=== PATIENT | male | born 1995 | race Caucasian/White ===

== ENCOUNTER 2021-06-10 23:11 | Emergency (ER) | payer OTHER ==
[2021-06-10 23:26] VITALS: TEMP 98.1; BMI 26.6
[2021-06-11] MEDS ORDERED: DIPHTH,PERTUSS(ACELL),TET 0.5 ML DISP.SYRIN IM ONE ×2 (01:04→01:20)
[2021-06-11] MEDS ORDERED: CEPHALEXIN MONOHYDRATE 500 MG CAPSULE (UD) PO ONE (01:39)
[2021-06-11] MEDS ORDERED: CEPHALEXIN MONOHYDRATE 500 MG CAPSULE (UD) ONE (01:50)
[2021-06-11 02:00] VITALS: BP 130/76; PULSE 99
== END 2021-06-11 03:13 | disposition home or self-care (01) ==
LOC: JER 23:11
PROC: 0HQFXZZ Repair Right Hand Skin, External Approach (ICD-10-PCS; principal; 2021-06-10)
PROC: 3E0234Z Introduction of Serum, Toxoid and Vaccine into Muscle, Percutaneous Approach (ICD-10-PCS; 2021-06-10)
DX: S61.210A Laceration without foreign body of right index finger without damage to nail, initial encounter (principal); W26.8XXA Contact with other sharp object(s), not elsewhere classified, initial encounter
CPT/HCPCS: 90715; 99283-25

== ENCOUNTER 2021-06-13 11:18 | Emergency (ER) | payer OTHER ==
[2021-06-13 11:26] VITALS: BP 153/86; PULSE 83; TEMP 97.8; BMI 24.7
== END 2021-06-13 11:48 | disposition home or self-care (01) ==
LOC: JERFT 11:18
DX: Z48.00 Encounter for change or removal of nonsurgical wound dressing (principal)
CPT/HCPCS: 99281-25